=== PATIENT | female | born 1945 | race Caucasian/White ===

== ENCOUNTER 2021-03-17 13:50 | Outpatient (REF) | payer MEDICARE, MEDICAID, SELFPAY ==
[2021-03-17 16:46] LABS: Hemoglobin 13.5 g/dl (12.0-16.0); Mean Corpuscular HGB Conc 30.7 g/dl (31.0-35.0); Mean Corpuscular Hemoglobin 26.6 pg (27.0-33.0); Mean Corpuscular Volume 86.6 fL (80-98); Mean Platelet Volume 10.1 fL (9.4-12.3); Platelet Count 236 X10*3/uL (160-400); Red Blood Count 5.08 X10*6/uL (4.20-5.50); Red Cell Distribution Width 18.5 % (11.0-16.0); White Blood Count 6.1 X10*3/uL (4.8-10.8)
[2021-03-17 16:53] LABS: Estimated Average Glucose 126 mg/dL
[2021-03-17 17:15] LABS: Alanine Aminotransferase 8 U/L (0-31); Alkaline Phosphatase 93 U/L (39-117); Anion Gap 13 (12-20); Aspartate Amino Transferase 21 U/L (5-31); Bilirubin Total 0.3 mg/dL (0.0-1.0); Blood Urea Nitrogen 11 mg/dL (9-16); Calcium 9.4 mg/dL (8.4-10.2); Carbon Dioxide 30 mmol/L (22-29); Chloride 104 mmol/L (96-108); Cholesterol 170 mg/dL; Estimated Glomerular Filt Rate > 60; Glucose Fasting 111 mg/dL (60-99); HDL Cholesterol 49 mg/dL; LDL Cholesterol Calculated 96 mg/dl; Sodium 142 mmol/L (135-145); Total Protein 7.1 g/dL (6.5-8.0); Triglycerides 126 mg/dL
== END 2021-03-17 13:51 | disposition home or self-care (01) ==
LOC: HO.HMGCLNP 13:50
PROVIDERS: Visit Provider Internal Medicine
DX: I10 Essential (primary) hypertension (principal); E11.9 Type 2 diabetes mellitus without complications; J44.9 Chronic obstructive pulmonary disease, unspecified
CPT/HCPCS: 80053; 80061; 83036; 85027

== ENCOUNTER 2025-04-03 15:58 | Inpatient (IN) | payer MEDICARE, MEDICAID, SELFPAY ==
--- NOTE | ~2025-04-03 | CT_ITS ---
CLINICAL HISTORY: Pleural effusion? Lung CA CT chest without contrast Comparison: None provided Findings: The heart is normal size. Calcification of the coronary vasculature. The visualized thyroid is within normal limits. There is mild fusiform aneurysmal dilatation of the ascending thoracic aorta measuring 41 mm. There is a partially cavitary mass within the right upper lobe posteriorly measuring 40 mm diameter with spiculated margins. Superior segment right lower lobe multi lobular nodule measuring 8 mm (image 52 ). 9 mm nodule within the right lower lobe posteromedially ( image 113). Large left pleural effusion. Moderate left upper and lower lobe airspace opacity. 8 mm nodule within the right lower lobe anteriorly ( image 102). Multiple smaller nodules within the right lower lobe. The upper abdomen is unremarkable. No acute fractures. Multilevel disc space narrowing and endplate osteophyte formation, as well as facet hypertrophy. IMPRESSION: 1. Malignant appearing right upper lobe mass. Multiple right lower lobe nodules, Possibly indicating metastatic disease. 2. Large left pleural effusion. Left lung pneumonia and/or atelectasis. 3. Coronary artery disease. 4. Mild aneurysmal dilatation of the ascending thoracic aorta. This document has been electronically signed by: Roly Zambrano MD on 04/03/2025 19:20:36
--- NOTE | ~2025-04-03 | XR_ITS ---
EXAMINATION: XR CHEST CLINICAL INFORMATION: post left thoracentesis. COMPARISON: April 03, 2025 TECHNIQUE: Frontal view of the chest was obtained. FINDINGS: Moderately large left pleural effusion with compressive atelectasis has decreased in size and is now moderate sized with increasing aeration of the left lung with persistent left airspace opacity likely representing improving atelectasis. Right upper lung zone mass is redemonstrated. No pneumothorax is evident. XR/XR chest 1V IMPRESSION: Decreased left pleural effusion postthoracentesis without pneumothorax. Decreasing left basilar atelectasis. Redemonstrated is a right upper lung zone mass. Electronically signed by: Salvatore Schulte MD 04/04/2025 11:37 AM EDT
--- NOTE | ~2025-04-03 | XR_ITS ---
EXAMINATION: 2 view XR CHEST CLINICAL INFORMATION: pleural effusion COMPARISON: None available. TECHNIQUE: 2 views of the chest were obtained. FINDINGS: Moderately large left opacity in the mid and lower left chest likely represents a pleural effusion with compressive atelectasis. Right lung is mildly hyperexpanded. There is a 4.3 cm focal opacity in the posterior segment right upper lobe. XR/XR chest 2V IMPRESSION: 4.3 cm opacity in the posterior segment right upper lobe could represent a mass, pneumonia, or other abnormality. Moderate to large left pleural effusion with compressive atelectasis. Electronically signed by: Salvatore Schulte MD 04/03/2025 05:13 PM EDT
--- NOTE | ~2025-04-03 | US_ITS ---
EXAMINATION: ULTRASOUND-GUIDED left THORACENTESIS CLINICAL INFORMATION: Large left pleural effusion. COMPARISON: None available. TECHNIQUE: Following explaining ultrasound-guided left thoracentesis procedure, benefits and risk, a written consent was obtained. Patient was placed sitting on ultrasound stretcher and preliminary ultrasound imaging was obtained through the left posterior chest. An optimal site was selected along the posterior inferior scapular line and marked on the skin approximately ninth and 10th interspace. The marked site was cleaned and draped in usual sterile manner. 1% lidocaine was injected puncture site. Through a small skin incision a 5 [place] [employer] catheter was advanced from the skin into the pleural space. After observing fluid return, stylet was withdrawn and catheter connected to vacuum bottle. After obtaining all fluid and observing normal fluid return, catheter was withdrawn and complete hemostasis achieved at puncture site. Tegaderm dressing was applied at puncture site. The exam was terminated following there is a 1.1 mm as patient had significant coughing and chest pain. FINDINGS: On preliminary ultrasound imaging there is moderate to large left pleural effusion. Approximately 1.1 liters of clear yellowish fluid was drained. Part of this fluid was sent to lab for further analysis as recommended by referring physician. A chest x-ray was obtained subsequently. US/US thoracentesis IMPRESSION: Successful ultrasound-guided left thoracentesis performed. Small amount of fluid was sent to lab for further analysis. Electronically signed by: Kal Paez MD 04/04/2025 02:55 PM EDT
[2025-04-03 16:03] VITALS: BP 142/96; PULSE 112; O2SAT 93
[2025-04-03 16:12] VITALS: BP 116/79; PULSE 110; RESP 18; TEMP 36.5; O2SAT 94; BMI 25.3
--- NOTE | 2025-04-03 16:12 | ED_ITS ---
HPI - SOB/Dyspnea General Chief Complaint: Dyspnea Stated Complaint: sob, diagnosed plural effusion Time Seen by Provider: 04/03/25 16:10 Source: patient Mode of arrival: ambulatory Limitations: no limitations History of Present Illness ED Provider: HPI Narrative: Patient is 80 years old with history of COPD hypotension came here for left- sided lower chest pain for last several weeks patient was seen at [facility] and discharged on 03/12 workup showed that patient has/pleural effusion likely chronic no further workup done for the pleural effusion patient comes here as pain of the left lower chest in the back and feeling short of breath saturating 94% on 2 L Related Data Home Medications ?Medication ?Instructions ?Recorded ?Confirmed blood-glucose meter #1 ea 04/23/21 04/23/21 lancets #100 ea 04/23/21 04/23/21 acetaminophen 650 mg 650 mg PO Q8H PRN Pain 04/0304/03/25 tablet,extended release Previous Rx's ?Medication ?Instructions ?Recorded albuterol sulfate 90 mcg/actuation 1 puff inhalation Q ID PRN wheezing 03/12/21 aerosol inhaler #8.5 grams blood sugar diagnostic (OneTouch #100 ea 03/12/21 Ultra Blue Test Strip) blood-glucose meter (OneTouch #1 ea 03/12/21 Ultra2 Meter kit) lancets 30 gauge (BD Ultra-Fine II #100 ea 03/12/21 Lancets) Transfer Bench #1 ea 04/23/21 heating pads #1 ea 05/06/21 loratadine 10 mg tablet 10 mg PO DAILY #90 tabs 02/07 Allergies Allergy/AdvReac Type Severity Reaction Status Date / Time penicillin V Allergy Unknown unknown Verified 04/03/25 16:15 umeclidinium (Anoro Ellipta) AdvReac Unknown mouth sores Verified 04/03/25 16:15 vilanterol (Anoro Ellipta) AdvReac Unknown mouth sores Verified 04/03/25 16:15 Review of Systems 2 Review of Systems: Yes all other systems are reviewed and are negative [facility] Past Medical History Medical History Hyperkalemia DM type 2 (diabetes mellitus, type 2) Status post closed fracture of right femur Paroxysmal atrial fibrillation Bilateral carpal tunnel syndrome Hx of echocardiogram Depression Anxiety Hypertension COPD (chronic obstructive pulmonary disease) Surgical History History of hip replacement Social History Social History Housing: House Unable to assess alcohol history related to: Unknown Alcohol intake: current Alcohol intake frequency: does not drink Patient Tobacco Use Status: Former Tobacco user Smoked in Last 30 Days: No e-Cigarette/Vaping Use: Never Used Use of substances other than those prescribed or required for medical reasons: Unknown Advance Directives: Yes Advance Directives Information Provided: Yes Advance Directives on File: No Nutrition Risks: No Nutritional Risk service: No Current occupational status: retired Physical Exam 2 Vital Signs: Vital Signs: Last Vital Signs Temp 97.7 F 04/03/25 22:00 Pulse 95 04/03/25 22:00 Resp 16 04/03/25 22:00 BP 123/76 04/03/25 22:00 Pulse Ox 96 04/03/25 22:00 O2 Del Method Nasal Cannula 04/03/25 22:00 O2 Flow Rate 2 04/03/25 22:00 BMI result Body Mass Index 25.3 Appearance: Alert. Oriented X3. No acute distress. Eyes: PERRLA, No Nystagmus ENT: Pharynx normal. Oral Mucosa moist Neck: Normal inspection. Neck supple. CVS: Normal heart rate and rhythm. Pulses normal. Respiratory: No respiratory distress. Equal air entry bilateral, no wheezing/rales/rhonchi percussion dullness in left lower lung Abdomen: Soft and nontender. Bowel sounds are present, no mass palpable, no CVA tenderness Skin: Skin warm and dry. Normal skin color. Normal skin turgor. Extremities: No lower extremity edema. No calf tenderness Neuro: Oriented X 3. No motor deficit. No sensory deficit.No cerebellar signs , cranial nerves II-XII intact Medications Administered Generic Name Dose Route Start Last Admin Trade Name Freq PRN Reason Stop Dose Admin Ceftriaxone Sodium 1 gm 04/03/25 21:00 04/03/25 21:26 Ceftriaxone Sodium 1 Gm Vial IVPUSH 1 gm Q24H ARUN Administration Enoxaparin Sodium 40 mg 04/03/25 21:00 04/03/25 21:26 Enoxaparin Sodium 40 Mg/0.4 Ml Syringe SUBCUT 40 mg Q24H ARUN Administration Doxycycline Hyclate 100 mg/ 250 mls @ 166.67 mls/hr 04/03/25 22:00 04/03/25 23:28 Sodium Chloride IV 166.67 mls/hr Q12H ARUN Administration Discontinued Medications Generic Name Dose Route Start Last Admin Trade Name Freq PRN Reason Stop Dose Admin Albumin Human 100 mls @ 133.333 mls/hr 04/03/25 20:45 04/03/25 23:10 Kedbumin 25 % IV 04/03/25 22:29 Infused Q1H ARUN Infusion Lactated Ringer's 1,000 mls @ 999 mls/hr 04/03/25 22:00 04/03/25 23:31 Lr IV 04/03/25 23:00 999 mls/hr .Q1H1M ARUN Administration Potassium Chloride 40 meq 04/03/25 20:34 04/03/25 21:26 Potassium Chloride Packet 20 Meq Packet PO 04/03/25 20:35 40 meq ONCE ONE Administration Medical Decision Making Medical Decision Making [facility] Narrative: Patient with new diagnose as of lung cancer with malignant pleural effusion like as the cause of shortness a breath in left lung pain will admit patient for further evaluation Differential Diagnosis Differential Diagnoses: The differential diagnosis associated with the presentation includes Pulmonary malignancy/metastasis/CHF Admission/Observation Consideration of admission/observation: Escalation of care including admission/observation considered Consult Healthcare Provider Management of the patient was discussed with: Hospitalist Lab Data MDM Lab Attestation statement: I reviewed the patient's lab results. 04/03/25 16:34 04/03/25 16:34 Labs: Lab Results 04/03/25 Range/Units 16:34 WBC 8.1 (4.8-10.8) X10*3/uL RBC 5.84 H (4.20-5.50) X10*6/uL Hgb 15.5 (12.0-16.0) g/dl Hct 48.7 H (37.0-47.0) % MCV 83.4 (80.0-98.0) fL MCH 26.5 L (27.0-33.0) pg MCHC 31.8 (31.0-35.0) g/dl RDW 15.8 (11.0-16.0) % Plt Count 260 (160-400) X10*3/uL MPV 10.2 (9.4-12.3) fL Immature Gran % (Auto) 0.2 (0.0-0.4) % Neut % (Auto) 64.0 (45-73) % Lymph % (Auto) 24.4 (20-40) % [place] % (Auto) 10.8 (2-11) % Eos % (Auto) 0.1 (0-4) % Baso % (Auto) 0.5 (0-2) % Lymph # (Auto) 2.0 (1.2-4.9) X10*3/uL [place] # (Auto) 0.9 (0.1-1.2) X10*3/uL Eos # (Auto) 0.0 (0.0-0.4) X10*3/uL Baso # (Auto) 0.0 (0.0-0.2) X10*3/uL Abs Immat Gran (auto) 0.02 (0.00-0.03) X10*3/uL Absolute Neuts (auto) 5.2 (2.0-8.3) x10*3/uL Absolute Nucleated RBC 0.000 (0.0-0.012) X10*3/uL Nucleated RBC % (auto) 0.0 (0.0-0.2) /100WBC PT 13.7 H (10.9-12.4) SEC INR 1.2 H (0.9-1.1) APTT 32.5 (26.0-36.8) SEC Sodium 142 (135-145) mmol/L Potassium 3.0 L (3.3-5.1) mmol/L Chloride 99 (96-108) mmol/L Carbon Dioxide 29 (22-29) mmol/L Anion Gap 17 (12-20) BUN 7 L (9-16) mg/dL Creatinine 0.62 (0.5-1.4) mg/dL Estim Creat Clear Calc 63.0 Estimated GFR > 60 Random Glucose 154 H (60-115) mg/dL Calcium 9.5 (8.4-10.2) mg/dL Magnesium 1.9 (1.6-2.6) mg/dL Total Bilirubin 0.8 (0.0-1.0) mg/dL AST 20 (5-31) U/L ALT < 6 (0-31) U/L Alkaline Phosphatase 72 (39-117) U/L Troponin I High Sens 2.9 (<3.5-17.0) ng/L B-Natriuretic Peptide 29 (<100) pg/mL Total Protein 7.1 (6.5-8.0) g/dL Albumin 3.7 (3.5-5.0) g/dL Independent Interpretation I performed an independent interpretation of an: EKG Interpretation: Sinus tachycardia with heart rate of 108 beats per minute normal interval normal axis no acute STT wave changes no acute ischemia Radiology Impression Discussion of test interpretation with radiology: I have reviewed the radiologist's reading. Radiologist Impression: [place] [id number] CT Scan Report Signed Patient: Glendy Ashley MR#: [id number] : 1945 Acct:[id number] Age/Sex: 80 / F ADM Date: 04/03/25 Loc: .ED Attending Dr: Ordering Physician: Fransico Ferreira MD Date of Service: 04/03/25 Procedure(s): CT chest wo IV con Accession Number(s): [id number] cc: Physician,None ; Fransico Ferreira MD~ Report Number: [id number]: Total DLP = 194.00 mGy-cm CLINICAL HISTORY: Pleural effusion? Lung CA CT chest without contrast Comparison: None provided Findings: The heart is normal size. Calcification of the coronary vasculature. The visualized thyroid is within normal limits. There is mild fusiform aneurysmal dilatation of the ascending thoracic aorta measuring 41 mm. There is a partially cavitary mass within the right upper lobe posteriorly measuring 40 mm diameter with spiculated margins. Superior segment right lower lobe multi lobular nodule measuring 8 mm (image 52 ). 9 mm nodule within the right lower lobe posteromedially ( image 113). Large left pleural effusion. Moderate left upper and lower lobe airspace opacity. 8 mm nodule within the right lower lobe anteriorly ( image 102). Multiple smaller nodules within the right lower lobe. The upper abdomen is unremarkable. No acute fractures. Multilevel disc space narrowing and endplate osteophyte formation, as well as facet hypertrophy. IMPRESSION: 1. Malignant appearing right upper lobe mass. Multiple right lower lobe nodules, Possibly indicating metastatic disease. 2. Large left pleural effusion. Left lung pneumonia and/or atelectasis. 3. Coronary artery disease. 4. Mild aneurysmal dilatation of the ascending thoracic aorta. This document has been electronically signed by: Roly Zambrano MD on 04/03/2025 19:20:36 Discharge Plan Discharge Clinical Impression: Metastatic primary lung cancer, Hypoxia Patient Disposition: Admitted As Inpatient
--- NOTE | 2025-04-03 16:15 | ECG_ITS ---
Test Reason : A FIB Blood Pressure : */* mmHG Vent. Rate : 108 BPM Atrial Rate : 108 BPM P-R Int : 142 ms QRS Dur : 90 ms QT Int : 340 ms P-R-T Axes : 51 28 21 degrees QTcB Int : 455 ms Sinus tachycardia Otherwise normal ECG No previous ECGs available Referred By: Fransico Ferreira Electronically Signed By: LISE RAMIRES
[2025-04-03 16:38] LABS: MANUAL DIFF FLAG NO
[2025-04-03 16:40] LABS: Basophils Percent Auto 0.5 % (0-2); Eosinophils Percent Auto 0.1 % (0-4); Hematocrit 48.7 % (37.0-47.0); Hemoglobin 15.5 g/dl (12.0-16.0); Imm Gran Abs Auto 0.02 X10*3/uL (0.00-0.03); Imm Gran Pct Auto 0.2 % (0.0-0.4); Lymphocytes Percent Auto 24.4 % (20-40); Mean Corpuscular HGB Conc 31.8 g/dl (31.0-35.0); Mean Corpuscular Hemoglobin 26.5 pg (27.0-33.0); Mean Corpuscular Volume 83.4 fL (80.0-98.0); Mean Platelet Volume 10.2 fL (9.4-12.3); Monocytes Absolute Auto 0.9 X10*3/uL (0.1-1.2); Monocytes Percent Auto 10.8 % (2-11); Neutrophils Absolute Auto 5.2 x10*3/uL (2.0-8.3); Platelet Count 260 X10*3/uL (160-400); Red Blood Count 5.84 X10*6/uL (4.20-5.50); Red Cell Distribution Width 15.8 % (11.0-16.0); White Blood Count 8.1 X10*3/uL (4.8-10.8)
[2025-04-03 16:49] LABS: INTERNATIONAL NORM RATIO 1.2 (0.9-1.1); Prothrombin Time 13.7 SEC (10.9-12.4)
[2025-04-03 16:52] LABS: Partial Thromboplastin Time 32.5 SEC (26.0-36.8)
[2025-04-03 16:57] LABS: Alanine Aminotransferase < 6 U/L (0-31); Albumin Level 3.7 g/dL (3.5-5.0); Alkaline Phosphatase 72 U/L (39-117); Anion Gap 17 (12-20); Aspartate Amino Transferase 20 U/L (5-31); Bilirubin Total 0.8 mg/dL (0.0-1.0); Blood Urea Nitrogen 7 mg/dL (9-16); Calcium 9.5 mg/dL (8.4-10.2); Carbon Dioxide 29 mmol/L (22-29); Chloride 99 mmol/L (96-108); Estimated Glomerular Filt Rate > 60; Glucose Random 154 mg/dL (60-115); Magnesium 1.9 mg/dL (1.6-2.6); Sodium 142 mmol/L (135-145); Total Protein 7.1 g/dL (6.5-8.0)
[2025-04-03 17:01] LABS: B Type Natriuretic Peptide 29 pg/mL (<100)
[2025-04-03 17:04] LABS: Troponin-I High Sensitivity 2.9 ng/L (<3.5-17.0)
--- NOTE | 2025-04-03 17:20 | MHC.EDTECH ---
O2 running soft between 88%-90% RA with no signs of distress, RN made aware
[2025-04-03 17:39] VITALS: O2SAT 87; O2SAT 94
--- NOTE | 2025-04-03 17:40 | MHC.EDTECH ---
Patient was desaturation to 87%of room air, ordered 2L of Oxygen, her oxygen went up to 94%.
[2025-04-03 18:11] VITALS: BP 121/82; PULSE 104; RESP 20; TEMP 36.8; O2SAT 96
--- NOTE | 2025-04-03 19:54 | P.HPHOSP_ITS ---
History of Present Illness Date of Service: 04/03/25 Chief Complaint: dyspnea This has a 80-year-old female with history of COPD not on home oxygen, hypertension, mood disorder, former tobacco use disorder who presents to the emergency department for evaluation of dyspnea and left-sided chest pain. Patient states she has had symptoms for the last few months. Her symptoms mainly pleuritic left-sided chest pain and dyspnea which is worse with exertion has been progressive. Has minimal cough with sputum production. Patient was seen at [facility] ER about 3 weeks prior to presentation and discharged from the ER with lidocaine patch. She was told she has an aneurysm and to follow-up in 6 months. Also reports malaise, fatigability and poor appetite for the last few months. Patient quit smoking 5 years ago. She does not take any home prescription medications. Unknown weight loss. No fever, chills, palpitations, abdominal pain, changes in urinary or bowel habits. In the emergency department, patient was found to be hypoxic and placed on 2 L supplemental oxygen. Imaging with malignant appearing right upper lobe mass with right lower lobe nodules. Also large left pleural effusion and left lung pneumonia. Review of Systems 2 Constitutional: Constitutional: Reports fatigue, Reports lethargy, Reports malaise, Reports poor appetite and Reports weakness Cardiovascular: Cardiovascular: Reports dyspnea on exertion Respiratory: Respiratory: Reports cough and Reports dyspnea on exertion Gastrointestinal: Gastrointestinal: Reports no additional gastrointestinal complaints Genitourinary: Genitourinary: Reports no additional female genitourinary complaints Neurologic: Reports weakness Endocrine: Endocrine: Reports fatigue [facility] Medical History Hyperkalemia DM type 2 (diabetes mellitus, type 2) Status post closed fracture of right femur Paroxysmal atrial fibrillation Bilateral carpal tunnel syndrome Hx of echocardiogram Depression Anxiety Hypertension COPD (chronic obstructive pulmonary disease) Surgical History History of hip replacement Social History Housing: House Unable to assess alcohol history related to: Unknown Alcohol intake: current Alcohol intake frequency: does not drink Patient Tobacco Use Status: Former Tobacco user Smoked in Last 30 Days: No e-Cigarette/Vaping Use: Never Used Use of substances other than those prescribed or required for medical reasons: Unknown Advance Directives: Yes Advance Directives Information Provided: Yes Advance Directives on File: No Nutrition Risks: No Nutritional Risk service: No Current occupational status: retired Meds Allergies Allergy/AdvReac Type Severity Reaction Status Date / Time penicillin V Allergy Unknown unknown Verified 04/03/25 16:15 umeclidinium (Anoro Ellipta) AdvReac Unknown mouth sores Verified 04/03/25 16:15 vilanterol (Anoro Ellipta) AdvReac Unknown mouth sores Verified 04/03/25 16:15 Home Medications ?Medication ?Instructions ?Recorded ?Confirmed ?Last Taken ?Type blood-glucose meter #1 ea 04/23/21 04/23/21 Unkn own History lancets #100 ea 04/23/21 04/23/21 Un known History Physical Exam 2 Vital Signs and Narrative: Vital Signs: Last Vital Signs Temp 98.2 F 04/03/25 18:11 Pulse 104 H 04/03/25 18:11 Resp 20 04/03/25 18:11 BP 121/82 04/03/25 18:11 Pulse Ox 96 04/03/25 18:11 O2 Del Method Nasal Cannula 04/03/25 18:11 O2 Flow Rate 2 04/03/25 18:11 BMI result Body Mass Index 25.3 Middle-aged female lying in bed in mild distress on supplemental oxygen Neck supple, no JVD Regular rate and rhythm, S1-S2 heard Right-sided crackles with reduced left-sided breath sounds Abdomen soft nontender, no guarding, no rigidity Patient is awake, alert and oriented to self, place, time and person ; no focal motor deficit Psych: Normal mood No pedal edema Results Labs 04/03/25 16:34 04/03/25 16:34 Labs: Laboratory Results - last 24 hr 04/03/25 16:34 MCV 83.4 MCH 26.5 L MCHC 31.8 RDW 15.8 Plt Count 260 MPV 10.2 Immature Gran % (Auto) 0.2 Neut % (Auto) 64.0 Lymph % (Auto) 24.4 [place] % (Auto) 10.8 Eos % (Auto) 0.1 Baso % (Auto) 0.5 Lymph # (Auto) 2.0 [place] # (Auto) 0.9 Eos # (Auto) 0.0 Baso # (Auto) 0.0 Abs Immat Gran (auto) 0.02 Absolute Neuts (auto) 5.2 Absolute Nucleated RBC 0.000 Nucleated RBC % (auto) 0.0 PT 13.7 H INR 1.2 H APTT 32.5 Anion Gap 17 Estim Creat Clear Calc 63.0 Estimated GFR > 60 Random Glucose 154 H Calcium 9.5 Magnesium 1.9 Total Bilirubin 0.8 AST 20 ALT < 6 Alkaline Phosphatase 72 Troponin I High Sens 2.9 B-Natriuretic Peptide 29 Total Protein 7.1 Albumin 3.7 Imaging Radiologist's Impressions: Impressions Chest X-Ray 04/03/25 16:50 IMPRESSION: 4.3 cm opacity in the posterior segment right upper lobe could represent a mass, pneumonia, or other abnormality. Moderate to large left pleural effusion with compressive atelectasis. Electronically signed by: Salvatore Schulte MD 04/03/2025 05:13 PM EDT RP Assessment and Plan (1) Hypoxia: Status: Acute (2) Pleural effusion, left: Status: Acute (3) Mass of right lung: Status: Acute Plan This has a 80-year-old female with history of COPD not on home oxygen, hypertension, mood disorder, former tobacco use disorder who presents to the emergency department for evaluation of dyspnea and left-sided chest pain. #. Acute hypoxemic respiratory failure due to large left-sided pleural effusion and left lung pneumonia #. Right upper lobe lung mass with right lower lobe nodules -Will admit patient with supplemental oxygen. Initiating empiric IV antibiotics for CAP. Imaging also with malignant appearing right upper lobe mass and multiple right lower lobe nodules. Consulting Oncology and pulmonology, appreciate assistance. IR for thoracentesis (diagnostic and therapeutic), studies pending #. Hypokalemia: Repleted #. Hypertension: Not on home prescription antihypertensives #. Mood disorder: Currently not on any home mood stabilizers Med rec pending DVT prophylaxis: Lovenox Full code. Discussed with patient and son at bedside Admit as inpatient and will require two night minimum hospital stay for supplemental oxygen, IV antibiotics (as above), which is not possible in a lesser acute setting. Quality Stroke Does the patient have a stroke diagnosis?: No VTE Prior VTE?: No VTE Risk Level:: Medical - moderate - high VTE Device Contraindication: Treatment Not Indicated VTE Drug Contraindication: N/A - Med Ordered
[2025-04-03 20:32] VITALS: BP 125/72; PULSE 99; RESP 16; TEMP 36.5; O2SAT 95
--- NOTE | 2025-04-03 20:49 | PHA.MEDREC ---
Addendum entered by Gigi Vazquez [facility] 04/03/25 20:55: MED REC CHECKED BY [facility] Original Note: Pharmacy Consult ? Medication Reconciliation Pharmacy has completed the medication reconciliation. Spoke with pt and she confirmed she is only taking Acetaminophen 650mg 1 q8h prn for pain, Albuterol inhaler 1 QID PRN and Loratadine 10mg tabs once daily and nothing else at this time for medications.
[2025-04-03] MEDS: Enoxaparin Sodium 40 MG/0.4 ML SYRINGE SUBCUT (21:26)
[2025-04-03] MEDS: Potassium Chloride Packet 20 MEQ PACKET 40 MEQ PO (21:26)
[2025-04-03] MEDS: cefTRIAXone sodium 1 GM VIAL IVPUSH (21:26)
[2025-04-03] MEDS: Albumin Human 25 % 100 ML 133.33 ML IV ×2 (21:31→22:14)
[2025-04-03 21:50] LABS: Lactic Acid 3.6 mmol/L (0.5-2.0)
[2025-04-03 22:00] VITALS: BP 123/76; PULSE 95; RESP 16; TEMP 36.5; O2SAT 96
[2025-04-03 23:22] LABS: Reflex Lactate? Lactic Acid Added
[2025-04-03] MEDS: Doxycycline Hyclate 100 MG in 0.9 % Sodium Chloride 250 ML 166.67 MG IV (23:28)
[2025-04-03] MEDS: Lactated Ringers 1,000 ML 999 ML IV (23:31)
[2025-04-04] VITALS (13 sets, daily range): BP systolic 126–152; BP diastolic 66–86; PULSE 61–89; RESP 13–219; TEMP 36.1–37.2; O2SAT 94–99
[2025-04-04 00:13] LABS: ~Lactic Acid-LAB USE ONLY 2.2 mmol/L (0.5-2.0)
--- NOTE | 2025-04-04 01:11 | PC.NURSE ---
Patient ambulated to the restroom and back to her room with a walker and supervision of geology technician.
[2025-04-04 01:43] LABS: Reflex Lactate? 2 Y
[2025-04-04 02:22] LABS: ~Lactic Acid-LAB USE ONLY 1.9 mmol/L (0.5-2.0)
--- NOTE | 2025-04-04 03:18 | PC.NURSE ---
Patient requested and provided with a warm blanket, patient reports mild pain in lower back 2-3/10 at present. This RN offered to patient PO Tylenol, patient declined Tylenol at this time. VSS, O2 Sat 97-98% on O2 at LPM.
[2025-04-04 06:07] LABS: MANUAL DIFF FLAG NO
[2025-04-04 06:18] LABS: Basophils Percent Auto 0.2 % (0-2); Hematocrit 39.7 % (37.0-47.0); Hemoglobin 13.1 g/dl (12.0-16.0); Imm Gran Abs Auto 0.03 X10*3/uL (0.00-0.03); Imm Gran Pct Auto 0.6 % (0.0-0.4); Lymphocytes Absolute Auto 0.7 X10*3/uL (1.2-4.9); Lymphocytes Percent Auto 13.6 % (20-40); Mean Corpuscular Hemoglobin 27.3 pg (27.0-33.0); Mean Corpuscular Volume 82.7 fL (80.0-98.0); Mean Platelet Volume 10.3 fL (9.4-12.3); Monocytes Absolute Auto 0.1 X10*3/uL (0.1-1.2); Monocytes Percent Auto 2.8 % (2-11); Neutrophils Absolute Auto 4.1 x10*3/uL (2.0-8.3); Neutrophils Percent Auto 82.8 % (45-73); Platelet Count 225 X10*3/uL (160-400); Red Cell Distribution Width 15.9 % (11.0-16.0); White Blood Count 4.9 X10*3/uL (4.8-10.8)
--- NOTE | 2025-04-04 07:27 | PC.NURSE ---
Assumed care of pt approx 0700, sitting up in bed eating breakfast. O2 sat in 90's on 2L O2 via NC. Denies SOB, respirations even and unlabored. Pending bed assignment.
--- NOTE | 2025-04-04 07:57 | PC.NURSE ---
Ambulated to bathroom with supervison and wheeled walker with steady gait
[2025-04-04 08:25] LABS: Anion Gap 14 (12-20); Blood Urea Nitrogen 7 mg/dL (9-16); Calcium 9.3 mg/dL (8.4-10.2); Carbon Dioxide 26 mmol/L (22-29); Chloride 105 mmol/L (96-108); Creatinine Clr Calc Pharmacy 79.7; Estimated Glomerular Filt Rate > 60; Glucose Random 149 mg/dL (60-115); Sodium 141 mmol/L (135-145)
[2025-04-04] MEDS: Doxycycline Hyclate 100 MG in 0.9 % Sodium Chloride 250 ML 166.67 MG IV ×2 (09:10→20:26)
--- NOTE | 2025-04-04 10:32 | MHC.CM.PN ---
CM met with Patient at bedside and addressed IMM with her; original was given to Patient and a copy has been placed on the chart. Patient lives in an apartment with her disabled Son/Jaun(who is being cared for by Patient's Daughter, while she is hospitalized)and she uses a walker to assist with mobility. Patient required no services [employer] and home/self care is her goal. CM has initiated and will follow for dc planning. PCP is Dr. Bee Gay and Son/PHILLIP/Kush will transport to home at time of dc.
[2025-04-04] MEDS: Lidocaine HCl 1 % MPF 5 ML VIAL SUBCUT (11:18)
[2025-04-04 11:47] LABS: MN% 95.7 %; PMN% 4.3 %; WBC Pleural Fluid 0.359 X10*3/uL
[2025-04-04 11:49] LABS: RBC Pleural Fluid < 0.002 X10*6/uL
--- NOTE | 2025-04-04 12:15 | MHC.CM.PN ---
PER MD ROUNDS, PLAN FOR THORACENTESIS TODAY DCP: HOME ? [facility] SON TO TRANSPORT CM FOLLOWING FOR DC NEEDS
[2025-04-04 12:33] LABS: BF Shift QC OK YES; Eosinophils Pleural Fluid 1 %; Lymphocytes Pleural Fluid 38 %; Monocytes Pleural Fluid 20 %; Neutrophils Pleural Fluid 7 %; Other Cells Plerual Fl 34 %
--- NOTE | 2025-04-04 12:42 | P.CONPL_ITS ---
History of Present Illness History of Present Illness Consult date: 04/04/25 Chief complaint: Dyspnea Narrative: 80-year-old lady, former 40+ pack-year smoker, quit 2019 with underlying likely COPD not on home O2 admitted on 04/03/2025 with dyspnea and hypoxia. On initial evaluation patient with large left-sided pleural effusion and right upper lobe cavitary lesion. Now status post left-sided thoracentesis with improvement of respiratory symptoms and fluid studies pending. Review of Systems 2 Constitutional: Constitutional: Denies daytime sleepiness, Denies excessive sweating, Denies fatigue, Denies fever(s), Denies lethargy, Denies malaise, Denies night sweats, Denies snoring and Reports weight loss Eyes: Eyes: Denies blurry vision and Denies itchy eyes ENT: Denies nasal congestion, Denies post nasal drip, Denies sinus pain, Denies sinus pressure and Denies other ( Thrush) Cardiovascular: Cardiovascular: Denies chest pain, Denies pedal edema, Reports dyspnea, Reports dyspnea on exertion, Denies orthopnea and Denies paroxysmal nocturnal dyspnea Respiratory: Respiratory: Denies cough, Denies hemoptysis, Denies excessive phlegm production, Reports dyspnea, Reports dyspnea on exertion, Denies snoring and Denies wheezing Gastrointestinal: Gastrointestinal: Denies abdominal pain and Denies heartburn Musculoskeletal: Musculoskeletal: Denies myalgias, Denies arthralgias and Denies joint swelling Integumentary/Breasts: Skin/Breast: Denies rash Neurologic: Denies memory loss and Denies seizure-like activity Psychiatric: Psychiatric: Denies abnormal sleep pattern, Denies anxiety and Denies memory loss Endocrine: Endocrine: Denies excessive sweating, Denies fatigue and Denies heat intolerance Hematologic/Lymphatic: Hematologic/Lymphatic: Denies easy bruising Allergic/Immunologic: Allergic/Immunologic: Denies itchy eyes, Denies seasonal rhinorrhea and Denies wheezing PMFSH Past Medical History Medical History Hyperkalemia DM type 2 (diabetes mellitus, type 2) Status post closed fracture of right femur Paroxysmal atrial fibrillation Bilateral carpal tunnel syndrome Hx of echocardiogram Depression Anxiety Hypertension COPD (chronic obstructive pulmonary disease) Surgical History Surgical History History of hip replacement Social History Social History Household Members: Other Household Members Other:: son Housing: Apartment Do you presently have visiting nurse or other home services: No Unable to assess alcohol history related to: Unknown Alcohol intake: current Alcohol intake frequency: does not drink Patient Tobacco Use Status: Former Tobacco user Smoked in Last 30 Days: No e-Cigarette/Vaping Use: Never Used Use of substances other than those prescribed or required for medical reasons: Unknown Currently Displaying Signs/Symptoms of Drug Intoxication Withdrawal: No Have you been hit, kicked, punched, or otherwise hurt by someone within the past year? If so, by whom?: No Do you feel safe in your current relationship?: No Current Relationship Is there a partner from a previous relationship who is making you feel unsafe now?: No Are you made to feel afraid or neglected: No Advance Directives: Yes Advance Directives Information Provided: Yes Advance Directives on File: No Advance Directives Date on File: 04/04/25 Do you have a plan to hurt others: No Plan Recently lost weight without trying: No Eating poorly because of decreased appetite: No Nutrition Risks: No Nutritional Risk Patient : No : No Poor oral hygiene: No service: No Current occupational status: retired Meds Allergies Allergy/AdvReac Type Severity Reaction Status Date / Time penicillin V Allergy Unknown unknown Verified 04/03/25 16:15 umeclidinium (Anoro Ellipta) AdvReac Unknown mouth sores Verified 04/03/25 16:15 vilanterol (Anoro Ellipta) AdvReac Unknown mouth sores Verified 04/03/25 16:15 Active Medications: Current Medications Acetaminophen (Acetaminophen 325 Mg Tablet) 650 mg PO Q6H PRN PRN Reason: Pain, Mild 1-3,fever,headache Albuterol/Ipratropium (Albuterol/Iprat 2.5/0.5mg 3 Ml Ampul.Neb) 3 ml INHALE Q4H PRN PRN Reason: Shortness of Breath/Wheezing Benzonatate (Benzonatate 100 Mg Capsule) 100 mg PO TID PRN PRN Reason: Cough Calcium Carbonate (Calcium Carbonate 750 Mg Tab.Chew) 750 mg PO Q4H PRN PRN Reason: Heartburn Ceftriaxone Sodium (Ceftriaxone Sodium 1 Gm Vial) 1 gm IVPUSH Q24H [facility] Last Admin: 04/03/25 21:26 Dose: 1 gm Enoxaparin Sodium (Enoxaparin Sodium 40 Mg/0.4 Ml Syringe) 40 mg SUBCUT Q24H [facility] Last Admin: 04/03/25 21:26 Dose: 40 mg Doxycycline Hyclate 100 mg/ (Sodium Chloride) 250 mls @ 166.67 mls/hr IV Q12H [facility] Last Infusion: 04/04/25 12:09 Dose: Infused Magnesium Hydroxide (Milk Of Magnesia 30 Ml Oral.Susp) 30 ml PO DAILY PRN PRN Reason: Constipation Melatonin (Melatonin 3 Mg Tablet) 6 mg PO BEDTIME PRN PRN Reason: Insomnia Ondansetron HCl (Ondansetron Hcl 4 Mg/2 Ml Vial) 4 mg IVPUSH Q8H PRN PRN Reason: Nausea and Vomiting Sodium Chloride (0.9 % Sodium Chloride Flush 3 Ml Syringe) 3 ml IVFLUSH QSHIFT [facility] Last Admin: 04/04/25 07:30 Dose: Not Given Home Medications ?Medication ?Instructions ?Recorded ?Confirmed ?Last Taken ?Type blood-glucose meter #1 ea 04/23/21 04/23/21 Unkn own History lancets #100 ea 04/23/21 04/23/21 Un known History acetaminophen 650 mg 650 mg PO Q8H PRN Pain 04/0304/03/25 04/02/25 History tablet,extended release Physical Exam 2 Vital Signs: Vital Signs: Last Vital Signs Temp 97.9 F 04/04/25 11:37 Pulse 71 04/04/25 11:37 Resp 16 04/04/25 11:37 BP 146/75 H 04/04/25 11:37 Pulse Ox 97 04/04/25 11:37 O2 Del Method Nasal Cannula 04/04/25 11:37 O2 Flow Rate 2 04/04/25 11:37 BMI result Body Mass Index 25.3 Const: General: no acute distress and alert Nutritional Appearance: not obese Orientation/consciousness: Other orientation findings ( oriented) HEENT: Head: Yes atraumatic Eyes: General: appearance normal, both eyes and all related structures S clerae: sclerae normal EOM: EOMs intact bilaterally Neck: Neck: Yes supple Lymphatic: no lymphadenopathy noted Resp: Effort & Inspection: normal respiratory effort and no use of accessory muscles Auscultation: clear to auscultation bilaterally Cardio: Rate: regular rate Rhythm: regular rhythm Heart sounds: no gallops, no murmurs and no rubs Skin: General skin exam: other ( warm) Extrem: General: No clubbing, No cyanosis and No edema Results Laboratory Findings 04/04/25 05:59 04/04/25 05:59 ABG, PT/INR, D-dimer: PT/INR, D-dimer PT 13.7 SEC (10.9-12.4) H 04/03/25 16:34 INR 1.2 (0.9-1.1) H 04/03/25 16:34 Abnormal lab findings: Abnormal Labs 04/03/25 04/03/25 04/03/25 16:34 21:15 23:37 RBC 5.84 H Hct 48.7 H MCH 26.5 L Immature Gran % (Auto) Neut % (Auto) Lymph % (Auto) Lymph # (Auto) PT 13.7 H INR 1.2 H Potassium 3.0 L BUN 7 L Creatinine Random Glucose 154 H Lactic Acid 3.6 H* Lactic Acid F/U @ 2Hr 2.2 H* 04/04/25 05:59 RBC Hct MCH Immature Gran % (Auto) 0.6 H Neut % (Auto) 82.8 H Lymph % (Auto) 13.6 L Lymph # (Auto) 0.7 L PT INR Potassium BUN 7 L Creatinine 0.49 L Random Glucose 149 H Lactic Acid Lactic Acid F/U @ 2Hr Assessment and Plan (1) COPD (chronic obstructive pulmonary disease): Status: Acute (2) Hypoxia: Status: Acute (3) Pleural effusion, left: Status: Acute (4) Mass of right lung: Status: Acute Plan Impression: 80-year-old lady with hypoxia and dyspnea likely secondary to malignant left-sided pleural effusion, now status post thoracentesis with improvement in her symptoms. Recommendation: Awaiting pleural fluid pathology. If effusion recurs, may need PleurX. Procedures Date of Service Date of Service: 04/04/25
--- NOTE | 2025-04-04 13:55 | P.PNIM_ITS ---
Subjective Subjective Date of Service: 04/04/25 Interval History: seen and examined this morning follow up for pneumonia, lung mass, pleural effusion minimal cough, no significant shortness of breath Constitutional Constitutional: Denies chills and Denies fever(s) Cardiovascular Cardiovascular: Denies chest pain and Denies palpitations Endocrine Endocrine: Denies palpitations Physical Exam 2 Vital Signs: Vital Signs: Last Vital Signs Temp 97.9 F 04/04/25 11:37 Pulse 71 04/04/25 11:37 Resp 16 04/04/25 11:37 BP 146/75 H 04/04/25 11:37 Pulse Ox 97 04/04/25 11:37 O2 Del Method Nasal Cannula 04/04/25 11:37 O2 Flow Rate 2 04/04/25 11:37 BMI result Body Mass Index 25.3 Const: General: cooperative, comfortable, no acute distress, alert and awake Nutritional Appearance: average body habitus Orientation/consciousness: p atient oriented x3 Resp: Other: b/l wheeze Effort & Inspection: normal respiratory effort and able to speak in complete sentences Cardio: Rate: regular rate GI: Inspection: No distended Neuro: General: patient oriented x3, moves all extremities and CN's II-XI intact bilaterally Objective Data Active Medications Acetaminophen (Acetaminophen 325 Mg Tablet) 650 mg PO Q6H PRN PRN Reason: Pain, Mild 1-3,fever,headache Albuterol/Ipratropium (Albuterol/Iprat 2.5/0.5mg 3 Ml Ampul.Neb) 3 ml INHALE Q4H PRN PRN Reason: Shortness of Breath/Wheezing Benzonatate (Benzonatate 100 Mg Capsule) 100 mg PO TID PRN PRN Reason: Cough Calcium Carbonate (Calcium Carbonate 750 Mg Tab.Chew) 750 mg PO Q4H PRN PRN Reason: Heartburn Ceftriaxone Sodium (Ceftriaxone Sodium 1 Gm Vial) 1 gm IVPUSH Q24H [facility] Last Admin: 04/03/25 21:26 Dose: 1 gm Documented By: NEO Enoxaparin Sodium (Enoxaparin Sodium 40 Mg/0.4 Ml Syringe) 40 mg SUBCUT Q24H [facility] Last Admin: 04/03/25 21:26 Dose: 40 mg Documented By: NEO Doxycycline Hyclate 100 mg/ (Sodium Chloride) 250 mls @ 166.67 mls/hr IV Q12H [facility] Last Infusion: 04/04/25 12:09 Dose: Infused Documented By: CLAY Magnesium Hydroxide (Milk Of Magnesia 30 Ml Oral.Susp) 30 ml PO DAILY PRN PRN Reason: Constipation Melatonin (Melatonin 3 Mg Tablet) 6 mg PO BEDTIME PRN PRN Reason: Insomnia Ondansetron HCl (Ondansetron Hcl 4 Mg/2 Ml Vial) 4 mg IVPUSH Q8H PRN PRN Reason: Nausea and Vomiting Sodium Chloride (0.9 % Sodium Chloride Flush 3 Ml Syringe) 3 ml IVFLUSH QSHIFT [facility] Last Admin: 04/04/25 07:30 Dose: Not Given Documented By: RAMIRO Non-Admin Reason: See Note Labs 04/04/25 05:59 04/04/25 05:59 Labs: Laboratory Results - last 24 hr 04/03/25 04/03/25 04/03/25 16:34 21:15 23:37 MCV 83.4 MCH 26.5 L MCHC 31.8 RDW 15.8 Plt Count 260 MPV 10.2 Immature Gran % (Auto) 0.2 Neut % (Auto) 64.0 Lymph % (Auto) 24.4 [place] % (Auto) 10.8 Eos % (Auto) 0.1 Baso % (Auto) 0.5 Lymph # (Auto) 2.0 [place] # (Auto) 0.9 Eos # (Auto) 0.0 Baso # (Auto) 0.0 Abs Immat Gran (auto) 0.02 Absolute Neuts (auto) 5.2 Absolute Nucleated RBC 0.000 Nucleated RBC % (auto) 0.0 PT 13.7 H INR 1.2 H APTT 32.5 Anion Gap 17 Estim Creat Clear Calc 63.0 Estimated GFR > 60 Random Glucose 154 H Lactic Acid 3.6 H* Lactic Acid F/U @ 2Hr 2.2 H* Lactic Acid F/U @ 4Hr Calcium 9.5 Magnesium 1.9 Total Bilirubin 0.8 AST 20 ALT < 6 Alkaline Phosphatase 72 Troponin I High Sens 2.9 B-Natriuretic Peptide 29 Total Protein 7.1 Albumin 3.7 Pleural WBC Pleural RBC Pleural Neutrophils Pleural Lymphocytes Pleural Monocytes Pleural Eosinophils Pleural Other Cells 04/04/25 04/04/25 04/04/25 01:57 05:59 11:00 MCV 82.7 MCH 27.3 MCHC 33.0 RDW 15.9 Plt Count 225 MPV 10.3 Immature Gran % (Auto) 0.6 H Neut % (Auto) 82.8 H Lymph % (Auto) 13.6 L [place] % (Auto) 2.8 Eos % (Auto) 0.0 Baso % (Auto) 0.2 Lymph # (Auto) 0.7 L [place] # (Auto) 0.1 Eos # (Auto) 0.0 Baso # (Auto) 0.0 Abs Immat Gran (auto) 0.03 Absolute Neuts (auto) 4.1 Absolute Nucleated RBC 0.000 Nucleated RBC % (auto) 0.0 PT INR APTT Anion Gap 14 Estim Creat Clear Calc 79.7 Estimated GFR > 60 Random Glucose 149 H Lactic Acid Lactic Acid F/U @ 2Hr Lactic Acid F/U @ 4Hr 1.9 Calcium 9.3 Magnesium Total Bilirubin AST ALT Alkaline Phosphatase Troponin I High Sens B-Natriuretic Peptide Total Protein Albumin Pleural WBC 0.359 Pleural RBC < 0.002 Pleural Neutrophils 7 Pleural Lymphocytes 38 Pleural Monocytes 20 Pleural Eosinophils 1 Pleural Other Cells 34 Microbiology Microbiology Results: Microbiology 04/04/25 11:00 Gram Stain - Final Thoracentesis Fluid Assessment and Plan (1) Mass of right lung: Status: Acute (2) Pleural effusion, left: Status: Acute Plan This is an 80-year-old female with history of COPD not on home oxygen, hypertension, mood disorder, former tobacco use disorder who presents to the emergency department for evaluation of dyspnea and left-sided chest pain found to have right lung mass and left pleural effusion admitted for further work up Acute hypoxemic respiratory failure due to large left-sided pleural effusion, left lung pneumonia and Right upper lobe lung mass with right lower lobe nodules concerning for malignancy continue empiric IV antibiotics for CAP ceftriaxone and doxycycline Oncology consult pending pulmonology consult pending IR for thoracentesis (diagnostic and therapeutic), s/p removal of 1.1L of fluid - follow fluid studies Hypokalemia: Resolved with replacement DVT prophylaxis: Lovenox Full code. Discussed with patient and son at bedside requires ongoing inpatient stay for supplemental oxygen, IV antibiotics (as above), specialist evaluation which is not possible in a lesser acute setting. Quality Stroke Does the patient have a stroke diagnosis?: No VTE Prior VTE?: No VTE Risk Level:: Medical - moderate - high VTE Device Contraindication: Treatment Not Indicated VTE Drug Contraindication: N/A - Med Ordered
[2025-04-04 14:30] LABS: Lactate Dehydrogenase 206 U/L (122-220)
[2025-04-04] MEDS: 0.9 % Sodium Chloride Flush 3 ML SYRINGE IVFLUSH ×2 (15:01→20:17)
--- NOTE | 2025-04-04 17:15 | PM.HEMONCCN ---
Subjective - Subjective Chief complaint: Shortness of breath Patient: new to practice Consult date: 04/04/25 Primary Care Provider: Bee Gay MD Administrative Office Manager Utilized?: No - Portuguese Speaking HPI - Consult Narrative Reason for consult: Left pleural effusion, right upper lobe mass suspicious for malignancy Narrative: Glendy Ashley is a 80 year old female with history of COPD who presented to emergency department with complaints of shortness breath as well as left-sided chest pain. Patient states she has had symptoms for the last few months. Her symptoms mainly pleuritic left-sided chest pain and dyspnea which is worse with exertion has been progressive. Has minimal cough with sputum production. Patient was seen at [facility] ER about 3 weeks prior to presentation and discharged from the ER with lidocaine patch. She was told she has an aneurysm and to follow-up in 6 months. Also reports malaise, fatigability and poor appetite for the last few months. Patient quit smoking 5 years ago. She does not take any home prescription medications. Unknown weight loss. No fever, chills, palpitations, abdominal pain, changes in urinary or bowel habits. In the emergency department, patient was found to be hypoxic and placed on 2 L supplemental oxygen. Imaging with malignant appearing right upper lobe mass with right lower lobe nodules. Also large left pleural effusion and left lung pneumonia. She lives at home with her son. She reports improvement in symptoms since she had fluid drained from chest. Review of Systems - Constitutional Reports as per HPI, Reports lack of energy, Reports malaise, Denies weight loss - Cardiovascular Reports no additional cardiovascular complaints - Respiratory Reports no additional respiratory complaints, Denies pain with cough, Reports dyspnea on exertion - Neurologic Denies memory loss, Denies seizure-like activity, Reports weakness PMFSH Medical History: Medical History (Last Reviewed 04/03/25 @ 20:30 by Tiffanie Milton MD) Anxiety Bilateral carpal tunnel syndrome COPD (chronic obstructive pulmonary disease) Depression DM type 2 (diabetes mellitus, type 2) Hx of echocardiogram Hyperkalemia Hypertension Paroxysmal atrial fibrillation Status post closed fracture of right femur Surgical History: Surgical History (Last Reviewed 04/03/25 @ 20:30 by Tiffanie Milton MD) History of hip replacement Social History: Social History (Last Reviewed 04/03/25 @ 20:30 by Tiffanie Milton MD) Living Situation History: Household Members: Other Household Members Other:: son Housing: Apartment Do you presently have visiting nurse or other home services: No Alcohol History: Unable to assess alcohol history related to: Unknown Tobacco History: Patient Tobacco Use Status: Former Tobacco user e-Cigarette/Vaping Use: Never Used Advance Directives: Advance Directives Date on File: 04/04/25 Occupation Assessmet: service: No Current occupational status: retired Home Medications and Allergies Current Medications: Current Medications Acetaminophen (Acetaminophen 325 Mg Tablet) 650 mg PO Q6H PRN PRN Reason: Pain, Mild 1-3,fever,headache Albuterol/Ipratropium (Albuterol/Iprat 2.5/0.5mg 3 Ml Ampul.Neb) 3 ml INHALE Q4H PRN PRN Reason: Shortness of Breath/Wheezing Benzonatate (Benzonatate 100 Mg Capsule) 100 mg PO TID PRN PRN Reason: Cough Calcium Carbonate (Calcium Carbonate 750 Mg Tab.Chew) 750 mg PO Q4H PRN PRN Reason: Heartburn Ceftriaxone Sodium (Ceftriaxone Sodium 1 Gm Vial) 1 gm IVPUSH Q24H [facility] Last Admin: 04/03/25 21:26 Dose: 1 gm Enoxaparin Sodium (Enoxaparin Sodium 40 Mg/0.4 Ml Syringe) 40 mg SUBCUT Q24H [facility] Last Admin: 04/03/25 21:26 Dose: 40 mg Doxycycline Hyclate 100 mg/ (Sodium Chloride) 250 mls @ 166.67 mls/hr IV Q12H [facility] Last Infusion: 04/04/25 12:09 Dose: Infused Magnesium Hydroxide (Milk Of Magnesia 30 Ml Oral.Susp) 30 ml PO DAILY PRN PRN Reason: Constipation Melatonin (Melatonin 3 Mg Tablet) 6 mg PO BEDTIME PRN PRN Reason: Insomnia Ondansetron HCl (Ondansetron Hcl 4 Mg/2 Ml Vial) 4 mg IVPUSH Q8H PRN PRN Reason: Nausea and Vomiting Sodium Chloride (0.9 % Sodium Chloride Flush 3 Ml Syringe) 3 ml IVFLUSH QSHIFT [facility] Last Admin: 04/04/25 15:01 Dose: 3 ml Home Medications ?Medication ?Instructions ?Recorded ?Confirmed ?Type blood-glucose meter #1 ea 04/23/21 04/23/21 History lancets #100 ea 04/23/21 04/23/21 History acetaminophen 650 mg 650 mg PO Q8H PRN Pain 04/03/25 04/03/25 History tablet,extended release Allergies Allergy/AdvReac Type Severity Reaction Status Date / Time penicillin V Allergy Unknown unknown Verified 04/03/25 16:15 umeclidinium (Anoro Ellipta) AdvReac Unknown mouth sores Verified 04/03/25 16:15 vilanterol (Anoro Ellipta) AdvReac Unknown mouth sores Verified 04/03/25 16:15 Physical Exam Vital signs: Vital Signs Temp 97.7 F 04/04/25 14:56 Pulse 73 04/04/25 14:56 Resp 18 04/04/25 14:56 BP 139/77 04/04/25 14:56 Pulse Ox 95 04/04/25 14:56 O2 Del Method Nasal Cannula 04/04/25 14:56 O2 Flow Rate 2 04/04/25 14:56 Intake & Output 04/03/25 04/04/25 04/04/25 18:59 06:59 18:59 Intake Total 1445.553 / 1445.553 490 / 490 Balance 1445.553 / 1445.553 490 / 490 Intake: Intake, Oral Amount 240 / 240 Intake, IV Amount 1445.553 / 1445.553 250 / 250 Albumin Human 25 % 100 ml @ 133 195.553 / 195.553 .333 mls/hr IV Q1H [facility] Rx#: [id number] Doxycycline Hyclate 100 mg In 0 250 / 250 250 / 250 .9 % Sodium Chloride 250 ml @ 166.67 mls/hr IV Q12H [facility] Rx#: [id number] Lactated Ringers 1,000 ml @ 999 1000 / 1000 mls/hr IV .Q1H1M [facility] Rx#: [id number] Other: Lunch % Eaten 25% Number of Unmeasured Voids 1 Number of Bowel Movements 1 Urine Bathroom Stool Bathroom Stool Amount Large Stool Color Brown Stool Consistency Formed Weight 62.8 kg Weight 62.8 kg - Constitutional Present: mild distress - Routine HEENT Exam Head: Present: normal inspection Eye: Present: normal appearance - Routine Neck Exam Present: supple - Routine Respiratory Exam Present: decreased breath sounds - Routine Cardiovascular Exam Cardiovascular: Present: S1, S2 - Routine Abdominal Exam Present: soft - Routine Extremities Exam Present: pulses intact Hem/Onc Consult Result - Labs CBC & Chem 7: 04/04/25 05:59 04/04/25 05:59 Labs: Short CBC 04/04/25 Range/Units 05:59 WBC 4.9 (4.8-10.8) X10*3/uL Hgb 13.1 (12.0-16.0) g/dl Hct 39.7 (37.0-47.0) % Plt Count 225 (160-400) X10*3/uL BMP 04/04/25 05:59 Sodium 141 Potassium 4.0 D Chloride 105 Carbon Dioxide 26 BUN 7 L Creatinine 0.49 L Calcium 9.3 Assessment and Plan Patient Active problem list reviewed?: Yes (1) Pleural effusion, left Status: Acute Assessment and plan: 1. This is a 80-year-old woman, ex-smoker presenting with large left pleural effusion and right upper lobe mass suspicious for lung cancer. She presented with progressive shortness of breath. CT chest without contrast performed 04/03/2025 showed a right upper lobe mass measuring 4 cm with spiculated margins, additional subcentimeter nodules in the right side, large left pleural effusion and multiple smaller nodules in the right lower lobe. Patient has had diagnostic and therapeutic paracentesis of the left pleural effusion. Await pleural fluid cytology. I discussed the possibility of lung cancer with the patient. If left pleural fluid is nondiagnostic, she will need biopsy of lung mass under CT guidance of possible. I would recommend repeat CT chest after thoracentesis to evaluate for additional lung nodules and extent of disease. Blood work shows elevated tumor marker, CEA was 23.40 NG/mL. LDH was normal. I discussed above findings with the patient. She was advised to follow up with oncology upon discharge. Thank you for the consultation. - Time Spent With Patient Time Spent with Patient (in minutes): 20
[2025-04-04] MEDS: Enoxaparin Sodium 40 MG/0.4 ML SYRINGE SUBCUT (20:17)
[2025-04-04] MEDS: cefTRIAXone sodium 1 GM VIAL IVPUSH (20:28)
[2025-04-05 07:36] VITALS: BP 168/89; PULSE 66; RESP 16; TEMP 36.6; O2SAT 96
[2025-04-05 08:13] LABS: Glucose, Whole Blood 100 mg/dL (60-115)
[2025-04-05] MEDS: Doxycycline Hyclate 100 MG in 0.9 % Sodium Chloride 250 ML 166.67 MG IV (10:15)
[2025-04-05] MEDS: 0.9 % Sodium Chloride Flush 3 ML SYRINGE IVFLUSH (10:15)
[2025-04-05 10:20] VITALS: O2SAT 93
--- NOTE | 2025-04-05 10:39 | PM.DS ---
DS: Providers Provider Date of Service: 04/05/25 Date of admission: 04/03/25 19:25 Date of discharge: 04/05/25 Primary care physician: Bee Gay MD Consults: 04/03/25 20:25 Consult to Hematology / Oncology Routine Consulting Provider: [facility] [place] Oncology/Hematology Reason for consultation: lung mass Consult to Pulmonology Routine Consulting Provider: [facility] [place] Pulmonology Services Reason for consultation: lung mass, pleural effusion Attending physician on discharge: Eliza Rebollar Discharging clinician: Rosy Rivas DS: Diagnosis Discharge Diagnosis (1) COPD (chronic obstructive pulmonary disease): Status: Acute (2) Hypoxia: Status: Acute (3) Pleural effusion, left: Status: Acute (4) Mass of right lung: Status: Acute DS: Summary Hospital Course Hospital Course: From H&P on the day of admission This has a 80-year-old female with history of COPD not on home oxygen, hypertension, mood disorder, former tobacco use disorder who presents to the emergency department for evaluation of dyspnea and left-sided chest pain. Patient states she has had symptoms for the last few months. Her symptoms mainly pleuritic left-sided chest pain and dyspnea which is worse with exertion has been progressive. Has minimal cough with sputum production. Patient was seen at [facility] ER about 3 weeks prior to presentation and discharged from the ER with lidocaine patch. She was told she has an aneurysm and to follow-up in 6 months. Also reports malaise, fatigability and poor appetite for the last few months. Patient quit smoking 5 years ago. She does not take any home prescription medications. Unknown weight loss. No fever, chills, palpitations, abdominal pain, changes in urinary or bowel habits. In the emergency department, patient was found to be hypoxic and placed on 2 L supplemental oxygen. Imaging with malignant appearing right upper lobe mass with right lower lobe nodules. Also large left pleural effusion and left lung pneumonia. Acute hypoxemic respiratory failure due to large left-sided pleural effusion, left lung pneumonia and right upper lobe lung mass with right lower lobe nodules concerning for malignancy Treated with IV antibiotics for CAP ceftriaxone and doxycycline. Underwent diagnostic and therapeutic thoracentesis on April 04 with 1.1 L of fluid removed. Fluid studies pending at the time of discharge. Seen by pulmonology- If fluid recurs may need PleurX catheter placed. Seen by Oncology-recommend outpatient follow-up for workup regarding lung mass with concern for malignancy. Patient was weaned off supplemental oxygen in his able to ambulate without hypoxia or shortness of breath. She will be discharged home to complete course of antibiotics for pneumonia. patient will be discharged home with VNA and PT services Time Attestation Discharge Coordination Time (in mins): 32 Quality: Safe Use of Opioids Does Pt have an Active Cancer Diagnosis on the Problem List?: No Quality: Stroke Does the patient have a stroke diagnosis?: No Physical Exam Vital Signs: Vital Signs: Last Vital Signs Temp 97.8 F 04/05/25 07:36 Pulse 66 04/05/25 07:36 Resp 16 04/05/25 07:36 BP 168/89 H 04/05/25 07:36 Pulse Ox 96 04/05/25 07:36 O2 Del Method Nasal Cannula 04/05/25 07:36 O2 Flow Rate 2 04/05/25 07:36 BMI result Body Mass Index 25.3 Const: General: cooperative, comfortable, no acute distress, alert and awake Nutritional Appearance: average body habitus Orientation/consciousness: patient oriented x3 Resp: Effort & Inspection: normal respiratory effort and able to speak in complete sentences Cardio: Rate: regular rate GI: Inspection: No distended Neuro: General: patient oriented x3, moves all extremities and CN's II-XI intact bilaterally DS: Data Data Completed and Pending Pending studies at discharge: Pending at discharge 04/03/25 20:37 Cytology [PTH] Routine Labs on day of discharge: Laboratory Results - last 24 hr 04/04/25 04/04/25 04/05/25 05:59 11:00 08:09 POC Glucose 100 Lactate Dehydrogenase 206 Carcinoembryonic Ag 23.40 Pleural WBC 0.359 Pleural RBC < 0.002 Pleural Neutrophils 7 Pleural Lymphocytes 38 Pleural Monocytes 20 Pleural Eosinophils 1 Pleural Other Cells 34 Preliminary micro results at discharge 04/03/25 21:15 Blood Culture - Preliminary Blood - Venous No growth after 24 hours. 04/03/25 21:15 Blood Culture - Preliminary Blood - Venous No growth after 24 hours. Discharge Plan Discharge Anticipated Discharge Date/Time: 04/05/25 10:46 Patient Disposition: Home Health Service Discharge Diagnosis: right lung mass pleural effusion Referrals: [facility] [Other] - 1 Week Referral Note: A rehabilitation case coordinator from [facility] will call you to assess for services needs. [facility] [Outside] - 3-5 Days Referral Note: [facility] will call you to schedule home physical therapy appointments Bee Gay MD [Primary Care Provider, Internal Medicine] - 1 Week Kyara Smith MD [Physician, Hematology & Oncology] - 1 Week Referral Note: Right lung mass; left pleural effusion Discharge Medications: New cefuroxime axetil 500 mg tablet 500 mg PO Q12H 5 Days Qty: 10 0RF doxycycline monohydrate 100 mg tablet 100 mg PO BID 5 Days Qty: 10 0RF Continued albuterol sulfate 90 mcg/actuation HFA aerosol inhaler 1 puff inhalation QID PRN (Reason: wheezing) Qty: 8.5 3RF (DME) OneTouch Ultra Blue Test Strip Strip See Rx Instructions .ROUTE .MEDSUPPLY Qty: 100 3RF Rx Instructions: Check fasting glucose daily (DME) blood-glucose meter [OneTouch Ultra2 Meter] Kit See Rx Instructions .ROUTE .MEDSUPPLY Qty: 1 0RF Rx Instructions: check fasting glucose daily (DME) lancets [BD Ultra-Fine II Lancets] 30 gauge misc See Rx Instructions .ROUTE .MEDSUPPLY Qty: 100 3RF Rx Instructions: Check fasting glucose daily (DME) heating pads Pad See Rx Instructions .Route Qty: 1 0RF Rx Instructions: As directed loratadine 10 mg tablet 10 mg PO DAILY Qty: 90 0RF Rx Instructions: Please schedule PCP appt for more refills acetaminophen 650 mg tablet extended release 650 mg PO Q8H PRN (Reason: Pain) (DME) lancets Misc See Rx Instructions .ROUTE DAILY Qty: 100 Rx Instructions: As directed (DME) blood-glucose meter Misc See Rx Instructions Not Applicable DAILY Qty: 1 Rx Instructions: As directed (DME) Transfer Bench Misc See Rx Instructions .ROUTE .MEDSUPPLY Qty: 1 0RF Rx Instructions: As directed Discharge Orders: Discharge Order (Routine); Ordered 04/05/25 Ordered By: Rosy Rivas Activity on Discharge: As tolerated Stand Alone Forms: Patient Portal Discharge page Print Language: Serbian Care Plan Goals: see below Health Concerns: new right lung mass left pleural effusion pneumonia Plan of Treatment: Complete course of antibiotics call to schedule follow up appointment with oncology for further workup re: right lung mass with concern for malignancy Assessment: see discharge summary
--- NOTE | 2025-04-05 11:00 | W.MHC.F2F ---
Service Date Service Date: 04/05/25 Encounter Date of encounter: 04/05/25 Reasons for Services Signs and symptoms assessed: new lung mass; home PT Reason for physical therapy: home safety and mobility, therapeutic exercises and energy conservation Overseeing Care: Bee Gay Homebound: Leaving the home is medically contraindicated at this time without the asist of a device and/or another person due th the listed conditions above and below. Reason homebound: unsteady gait / fall risk Certification: Based on the above findings, I certify that this patient is confined to the home and needs intermittent care home care, physical therapy and/or speech therapy, or continues to need occupational therapy. The patient is under my care, and I have initiated the establishment of the plan of care. The patient will be followed by a physician who will periodically review the plan of care. Time Spent With Patient Time: Total time managing care of this patient today ____ minutes.
--- NOTE | 2025-04-05 11:19 | P.PNHO-ONC_ITS ---
Medical Summary - Medical Summary Date of Service: 04/05/25 Chief complaint: cavitary lung umor Primary Care Provider: Bee Gay MD [employer] Storage Clerk Utilized?: No - Colombian Speaking Interval History Interval history: Glendy Ashley is a 80 year old female admitted with large left pleural effusion a RUL cavitary mass now being evaluated. She seems stable and is aware of her status. Cytology of the pleural fluid is negative. Review of Systems - Constitutional Reports anorexia - Eyes Reports requires corrective lenses - ENT Reports system reviewed and no additional complaints, except as documented - Cardiovascular Reports shortness of breath - Respiratory Reports change in phlegm color - Gastrointestinal Reports nausea - Neurologic Reports system reviewed and no additional complaints, except as documented, Reports weakness, Denies memory loss, Denies seizure-like activity - Psychiatric Reports change in appetite PMFSH Medical History: Medical History (Last Reviewed 04/03/25 @ 20:30 by Tiffanie Milton MD) Anxiety Bilateral carpal tunnel syndrome COPD (chronic obstructive pulmonary disease) Depression DM type 2 (diabetes mellitus, type 2) Hx of echocardiogram Hyperkalemia Hypertension Paroxysmal atrial fibrillation Status post closed fracture of right femur Surgical History: Surgical History (Last Reviewed 04/03/25 @ 20:30 by Tiffanie Milton MD) History of hip replacement Social History: Social History (Last Reviewed 04/03/25 @ 20:30 by Tiffanie Milton MD) Living Situation History: Household Members: Other Household Members Other:: son Housing: Apartment Do you presently have visiting nurse or other home services: No Alcohol History: Unable to assess alcohol history related to: Unknown Alcohol History Details: 1. How often do you have a drink containing alcohol?: a. Never 3. How often do you have six or more drinks on one occasion?: a. Never AUDIT-C Alcohol total score: 0 Currently Displaying Signs/Symptoms of Alcohol Withdrawal: No Tobacco History: Patient Tobacco Use Status: Former Tobacco user Smoked in Last 30 Days: No e-Cigarette/Vaping Use: Never Used Additional Comments: quit 10 years ago Substance Use History: Use of substances other than those prescribed or required for medical reasons : Unknown Currently Displaying Signs/Symptoms of Drug Intoxication Withdrawal: No Domestic Abuse History: Have you been hit, kicked, punched, or otherwise hurt by someone within the past year? If so, by whom?: No Do you feel safe in your current relationship?: No Current Relationship Is there a partner from a previous relationship who is making you feel unsafe now?: No Are you made to feel afraid or neglected: No Advance Directives: Advance Directives: Yes Advance Directives Information Provided: Yes Advance Directives on File: No Advance Directives Date on File: 04/04/25 Homicidal Assessment: Do you have a plan to hurt others: No Plan Nutrition Assessment: Recently lost weight without trying: No Eating poorly because of decreased appetite: No Nutrition Risks: No Nutritional Risk Patient : No : No Poor oral hygiene: No Occupation Assessmet: service: No Current occupational status: retired Home Medications and Allergies Current Medications: Current Medications Acetaminophen (Acetaminophen 325 Mg Tablet) 650 mg PO Q6H PRN PRN Reason: Pain, Mild 1-3,fever,headache Albuterol/Ipratropium (Albuterol/Iprat 2.5/0.5mg 3 Ml Ampul.Neb) 3 ml INHALE Q4H PRN PRN Reason: Shortness of Breath/Wheezing Benzonatate (Benzonatate 100 Mg Capsule) 100 mg PO TID PRN PRN Reason: Cough Calcium Carbonate (Calcium Carbonate 750 Mg Tab.Chew) 750 mg PO Q4H PRN PRN Reason: Heartburn Ceftriaxone Sodium (Ceftriaxone Sodium 1 Gm Vial) 1 gm IVPUSH Q24H [facility] Last Admin: 04/04/25 20:28 Dose: 1 gm Enoxaparin Sodium (Enoxaparin Sodium 40 Mg/0.4 Ml Syringe) 40 mg SUBCUT Q24H [facility] Last Admin: 04/04/25 20:17 Dose: 40 mg Doxycycline Hyclate 100 mg/ (Sodium Chloride) 250 mls @ 166.67 mls/hr IV Q12H [facility] Last Admin: 04/05/25 10:15 Dose: 166.67 mls/hr Magnesium Hydroxide (Milk Of Magnesia 30 Ml Oral.Susp) 30 ml PO DAILY PRN PRN Reason: Constipation Melatonin (Melatonin 3 Mg Tablet) 6 mg PO BEDTIME PRN PRN Reason: Insomnia Ondansetron HCl (Ondansetron Hcl 4 Mg/2 Ml Vial) 4 mg IVPUSH Q8H PRN PRN Reason: Nausea and Vomiting Sodium Chloride (0.9 % Sodium Chloride Flush 3 Ml Syringe) 3 ml IVFLUSH QSHIFT [facility] Last Admin: 04/05/25 10:15 Dose: 3 ml Home Medications ?Medication ?Instructions ?Recorded ?Confirmed ?Type blood-glucose meter #1 ea 04/23/21 04/23/21 History lancets #100 ea 04/23/21 04/23/21 History acetaminophen 650 mg 650 mg PO Q8H PRN Pain 04/03/25 04/03/25 History tablet,extended release Allergies Allergy/AdvReac Type Severity Reaction Status Date / Time penicillin V Allergy Unknown unknown Verified 04/03/25 16:15 umeclidinium (Anoro Ellipta) AdvReac Unknown mouth sores Verified 04/03/25 16:15 vilanterol (Anoro Ellipta) AdvReac Unknown mouth sores Verified 04/03/25 16:15 Exam Vital signs: Vital Signs Temp 97.8 F 04/05/25 07:36 Pulse 66 04/05/25 07:36 Resp 16 04/05/25 07:36 BP 168/89 H 04/05/25 07:36 Pulse Ox 93 04/05/25 10:20 O2 Del Method Room Air 04/05/25 10:20 O2 Flow Rate 2 04/05/25 07:36 Intake & Output 04/04/25 04/05/25 04/05/25 18:59 06:59 18:59 Intake Total 490 / 1900 1410 / 1900 Balance 490 / 1900 1410 / 1900 Intake: Intake, Oral Amount 240 / 1400 1160 / 1400 Intake, IV Amount 250 / 500 250 / 500 Doxycycline Hyclate 100 mg In 0 250 / 500 250 / 500 .9 % Sodium Chloride 250 ml @ 166.67 mls/hr IV Q12H [facility] Rx#: [id number] Other: Lunch % Eaten 25% Dinner % Eaten 100% Eating (Feeding) Ability Independent Number of Unmeasured Voids 1 1 Number of Bowel Movements 1 0 Urine Bathroom Bathroom Urine Color Yellow Stool Bathroom Stool Amount Large Stool Color Brown Stool Consistency Formed Weight 62.8 kg BMI result Body Mass Index 25.3 - Constitutional Present: no acute distress - Routine HEENT Exam Head: Present: atraumatic - Routine Neck Exam Present: full ROM - Routine Respiratory Exam Present: decreased breath sounds - Routine Cardiovascular Exam Cardiovascular: Present: RRR - Routine Abdominal Exam Present: diminished bowel sounds - Routine Extremities Exam Present: nontender Data - Labs CBC & Chem 7: 04/04/25 05:59 04/04/25 05:59 Labs: Laboratory Last Values WBC 4.9 X10*3/uL (4.8-10.8) 04/04/25 05:59 RBC 4.80 X10*6/uL (4.20-5.50) 04/04/25 05:59 Hgb 13.1 g/dl (12.0-16.0) 04/04/25 05:59 Hct 39.7 % (37.0-47.0) 04/04/25 05:59 MCV 82.7 fL (80.0-98.0) 04/04/25 05:59 MCH 27.3 pg (27.0-33.0) 04/04/25 05:59 MCHC 33.0 g/dl (31.0-35.0) 04/04/25 05:59 RDW 15.9 % (11.0-16.0) 04/04/25 05:59 Plt Count 225 X10*3/uL (160-400) 04/04/25 05:59 MPV 10.3 fL (9.4-12.3) 04/04/25 05:59 Immature Gran % (Auto) 0.6 % (0.0-0.4) H 04/04/25 05:59 Neut % (Auto) 82.8 % (45-73) H 04/04/25 05:59 Lymph % (Auto) 13.6 % (20-40) L 04/04/25 05:59 [place] % (Auto) 2.8 % (2-11) 04/04/25 05:59 Eos % (Auto) 0.0 % (0-4) 04/04/25 05:59 Baso % (Auto) 0.2 % (0-2) 04/04/25 05:59 Lymph # (Auto) 0.7 X10*3/uL (1.2-4.9) L 04/04/25 05:59 [place] # (Auto) 0.1 X10*3/uL (0.1-1.2) 04/04/25 05:59 Eos # (Auto) 0.0 X10*3/uL (0.0-0.4) 04/04/25 05:59 Baso # (Auto) 0.0 X10*3/uL (0.0-0.2) 04/04/25 05:59 Abs Immat Gran (auto) 0.03 X10*3/uL (0.00-0.03) 04/04/25 05:59 Absolute Neuts (auto) 4.1 x10*3/uL (2.0-8.3) 04/04/25 05:59 Absolute Nucleated RBC 0.000 X10*3/uL (0.0-0.012) 04/04/25 05:59 Nucleated RBC % (auto) 0.0 /100WBC (0.0-0.2) 04/04/25 05:59 PT 13.7 SEC (10.9-12.4) H 04/03/25 16:34 INR 1.2 (0.9-1.1) H 04/03/25 16:34 APTT 32.5 SEC (26.0-36.8) 04/03/25 16:34 Sodium 141 mmol/L (135-145) 04/04/25 05:59 Potassium 4.0 mmol/L (3.3-5.1) D 04/04/25 05:59 Chloride 105 mmol/L (96-108) 04/04/25 05:59 Carbon Dioxide 26 mmol/L (22-29) 04/04/25 05:59 Anion Gap 14 (12-20) 04/04/25 05:59 BUN 7 mg/dL (9-16) L 04/04/25 05:59 Creatinine 0.49 mg/dL (0.5-1.4) L 04/04/25 05:59 Estim Creat Clear Calc 79.7 04/04/25 05:59 Estimated GFR > 60 04/04/25 05:59 POC Glucose 100 mg/dL (60-115) 04/05/25 08:09 Random Glucose 149 mg/dL (60-115) H 04/04/25 05:59 Lactic Acid 3.6 mmol/L (0.5-2.0) H* 04/03/25 21:15 Lactic Acid F/U @ 2Hr 2.2 mmol/L (0.5-2.0) H* 04/03/25 23:37 Lactic Acid F/U @ 4Hr 1.9 mmol/L (0.5-2.0) 04/04/25 01:57 Calcium 9.3 mg/dL (8.4-10.2) 04/04/25 05:59 Magnesium 1.9 mg/dL (1.6-2.6) 04/03/25 16:34 Total Bilirubin 0.8 mg/dL (0.0-1.0) 04/03/25 16:34 AST 20 U/L (5-31) 04/03/25 16:34 ALT < 6 U/L (0-31) 04/03/25 16:34 Alkaline Phosphatase 72 U/L (39-117) 04/03/25 16:34 Lactate Dehydrogenase 206 U/L (122-220) 04/04/25 05:59 Troponin I High Sens 2.9 ng/L (<3.5-17.0) 04/03/25 16:34 B-Natriuretic Peptide 29 pg/mL (<100) 04/03/25 16:34 Total Protein 7.1 g/dL (6.5-8.0) 04/03/25 16:34 Albumin 3.7 g/dL (3.5-5.0) 04/03/25 16:34 Carcinoembryonic Ag 23.40 ng/mL 04/04/25 05:59 Pleural WBC 0.359 X10*3/uL 04/04/25 11:00 Pleural RBC < 0.002 X10*6/uL 04/04/25 11:00 Pleural Neutrophils 7 % 04/04/25 11:00 Pleural Lymphocytes 38 % 04/04/25 11:00 Pleural Monocytes 20 % 04/04/25 11:00 Pleural Eosinophils 1 % 04/04/25 11:00 Pleural Other Cells 34 % 04/04/25 11:00 - Imaging Radiologist's impression: ITS Impressions Chest X-Ray 04/03/25 16:50 IMPRESSION: 4.3 cm opacity in the posterior segment right upper lobe could represent a mass, pneumonia, or other abnormality. Moderate to large left pleural effusion with compressive atelectasis. Electronically signed by: Salvatore Schulte MD 04/03/2025 05:13 PM EDT Chest X-Ray 04/04/25 10:21 IMPRESSION: Decreased left pleural effusion postthoracentesis without pneumothorax. Decreasing left basilar atelectasis. Redemonstrated is a right upper lung zone mass. Electronically signed by: Salvatore Schulte MD 04/04/2025 11:37 AM EDT RP Thoracentesis Ultrasound 04/04/25 10:30 IMPRESSION: Successful ultrasound-guided left thoracentesis performed. Small amount of fluid was sent to lab for further analysis. Electronically signed by: Kal Paez MD 04/04/2025 02:55 PM EDT RP Assessment and Plan Patient Active problem list reviewed?: Yes (1) Mass of right lung Status: Acute Assessment and plan: We will need a tissue diagnosis. Suggest FNA v. bronchoscopy v. sputum cytology. Will follow. - Time Spent With Patient Time Spent with Patient (in minutes): 15
--- NOTE | 2025-04-05 11:21 | MHC.CM.PN ---
Patient medically cleared for dc home w/ new [facility] for PT. Also sent [facility] referral to assess for services needs. Patient believes she could benefit from [employer]/home making services. She will also follow up w/ her PCP about this. Family transport.
[2025-04-05 11:55] VITALS: BP 180/85; PULSE 82; RESP 16; TEMP 36.3; O2SAT 92
--- NOTE | 2025-04-07 15:34 | HO.HEMONCSCH ---
04/07/25- called pt to book follow-up appt w/ Dr Smith. Pt declined to schedule the appointment.
[2025-04-08 08:22] LABS: pH Pleural Fluid 7.51
[2025-04-08 08:24] LABS: Albumin Pleural Fluid 2.8; Total Protein Pleural Fluid 4.9
[2025-04-08 08:25] LABS: Glucose Pleural Fluid 181; LDH Pleural Fluid 143
== END 2025-04-05 12:23 | disposition home health service (06) | DRG 194 ==
LOC: HO.ED 18:08 → HO.EDOVER 20:48 → HO.S3 04-04 07:27
PROVIDERS: Internal Medicine; Radiology Diagnostic Radiology; Admitting Provider Student in an Organized Health Care Education/Training Program; Emergency Provider Internal Medicine; PCP Internal Medicine; Visit Provider Physician Assistant Medical
PROC: 0W9B3ZZ Drainage of Left Pleural Cavity, Percutaneous Approach (ICD-10-PCS; principal; 2025-04-04 10:30)
DX: J18.9 Pneumonia, unspecified organism (principal); C34.11 Malignant neoplasm of upper lobe, right bronchus or lung; J44.0 Chronic obstructive pulmonary disease with (acute) lower respiratory infection; J91.8 Pleural effusion in other conditions classified elsewhere; F39 Unspecified mood [affective] disorder; E87.6 Hypokalemia; Z87.891 Personal history of nicotine dependence; Z79.899 Other long term (current) drug therapy
CPT/HCPCS: 32555; 36415; 71045; 71046; 71250; 80048; 80053; 82042; 82378; 82945; 82947; 83605; 83615; 83735; 83880; 83986; 84157; 84484; 85025; 85610; 85730; 87040; 87070; 87073; 87205; 88112; 88305; 88341; 88342; 89051; 93005; 99285; J0696; J1271; J1650; J2003; J7120; P9047

== ENCOUNTER → 2025-04-03 16:13 | Outpatient (BNV) | payer MEDICARE, MEDICAID, SELFPAY | PROVIDERS: Emergency Provider Internal Medicine; Visit Provider Radiology Diagnostic Radiology | DX: I25.10 Atherosclerotic heart disease of native coronary artery without angina pectoris (principal); R91.8 Other nonspecific abnormal finding of lung field; J90 Pleural effusion, not elsewhere classified; J98.11 Atelectasis | CPT/HCPCS: 71046; 71250 ==

== ENCOUNTER → 2025-04-03 16:15 | Outpatient (BNV) | payer MEDICARE, MEDICAID, SELFPAY | PROVIDERS: Admitting Provider Student in an Organized Health Care Education/Training Program; Emergency Provider Internal Medicine; PCP Internal Medicine; Visit Provider Internal Medicine | DX: R00.0 Tachycardia, unspecified (principal) | CPT/HCPCS: 93010 ==

== ENCOUNTER → 2025-04-03 16:33 | Outpatient (BNV) | payer MEDICARE, MEDICAID, SELFPAY | PROVIDERS: Emergency Provider Internal Medicine; Visit Provider Student in an Organized Health Care Education/Training Program | DX: R09.02 Hypoxemia (principal); J90 Pleural effusion, not elsewhere classified; R91.8 Other nonspecific abnormal finding of lung field | CPT/HCPCS: 99223; 99239; G0180 ==

== ENCOUNTER 2025-04-03 19:25 | Outpatient (BNV) | payer MEDICARE, MEDICAID, SELFPAY | END 2025-04-04 10:21 | PROVIDERS: Admitting Provider Student in an Organized Health Care Education/Training Program; Emergency Provider Internal Medicine; PCP Internal Medicine; Visit Provider Radiology Diagnostic Radiology | DX: J90 Pleural effusion, not elsewhere classified (principal); J98.11 Atelectasis | CPT/HCPCS: 32555 ==

== ENCOUNTER → 2025-04-03 19:25 | Outpatient (BNV) | payer MEDICARE, MEDICAID, SELFPAY | PROVIDERS: Admitting Provider Student in an Organized Health Care Education/Training Program; Emergency Provider Internal Medicine; PCP Internal Medicine; Visit Provider Internal Medicine Pulmonary Disease | DX: J44.9 Chronic obstructive pulmonary disease, unspecified (principal); J96.01 Acute respiratory failure with hypoxia; J90 Pleural effusion, not elsewhere classified; R91.8 Other nonspecific abnormal finding of lung field | CPT/HCPCS: 99223 ==

== ENCOUNTER → 2025-04-03 19:25 | Outpatient (BNV) | payer MEDICARE, MEDICAID, SELFPAY | PROVIDERS: Admitting Provider Student in an Organized Health Care Education/Training Program; Emergency Provider Internal Medicine; PCP Internal Medicine; Visit Provider Internal Medicine | DX: J90 Pleural effusion, not elsewhere classified (principal) | CPT/HCPCS: 99222 ==

== ENCOUNTER → 2025-04-07 23:59 | Outpatient (BNV) | payer MEDICARE, MEDICAID, SELFPAY | PROVIDERS: PCP Internal Medicine; Visit Provider Internal Medicine | DX: J44.9 Chronic obstructive pulmonary disease, unspecified (principal); J96.01 Acute respiratory failure with hypoxia | CPT/HCPCS: G0180 ==